=== PATIENT | male | born 1970 | race Caucasian/White ===

== ENCOUNTER → 2017-09-06 | Outpatient (CLI) | payer OTHER ==
[~2017-09-06] MED LIST: ACETAMINOPHEN-120 ML PO; BACK & BODY PA1 EACH; BLEPH-105 ML OPHTHALMIC; CIPROFLOXACIN500 M1 PO; DICYCLOMINE HCL10 MG; FLAGYL500 M1 PO; NOHOMEMEDICATIONS; NORCO 5-325 TA1 EACH PO; ONDANSETRON HCL4 M2; PRILOSEC40 MG PO; PROVENTIL INH; TESSALON200 MG PO; VENTOLIN17 GM INH; ZOFRAN ODT4 MG PO; ZPAK PO
== END ==
LOC: M.RAD 09:36
DX: M79.642 Pain in left hand (principal)